=== PATIENT | male | born 1955 | race Caucasian/White ===

== ENCOUNTER → 2018-03-23 10:00 | Outpatient (CLI) | payer OTHER, SELFPAY ==
[2018-03-23 10:56] LABS: Add Manual Diff / Slide Review NO; Eosinophils Percent Auto 3.4 % (2-4); Hematocrit 44.3 % (41-53); Hemoglobin 15.5 g/dL (13.5-17.5); Mean Corpuscular Hemoglobin 29.7 PG (26-34); Neutrophils Absolute Auto 4500 /uL (3000-5900); Neutrophils Percent Auto 64.6 % (50-75); Platelet Count 200 X10^3/uL (150-400); Red Blood Cell Count 5.21 X10^6/uL (4.5-5.9); Red Cell Distribution Width 13.7 % (11.6-14.8)
[2018-03-23 11:00] LABS: Alanine Aminotransferase 36 IU/L (21-72); Albumin 4.6 g/dL (3.5-5.0); Albumin Globulin Ratio 1.8 (1.0-2.8); Alkaline Phosphatase 44 U/L (38-126); Aspartate Aminotransferase 25 IU/L (17-59); BUN Creatinine Ratio 16.7 (6-22); Bilirubin Total 0.6 mg/dL (0.2-1.3); Blood Urea Nitrogen 15 mg/dL (9-20); Calcium 9.9 mg/dL (8.4-10.2); Carbon Dioxide 28 mmol/L (22-32); Chloride 102 mmol/L (98-107); Estimated Glomerular Filt Rate > 60.0 mL/min (>60); Globulin 2.6 g/dL (1.7-4.1); Glucose 110 mg/dL (80-110); HEMOLYSIS < 15 (0-50); Potassium 4.2 mmol/L (3.4-5.1); Sodium 142 mmol/L (137-145); Total Protein 7.2 g/dL (6.3-8.2)
[2018-03-23 11:08] LABS: Cholesterol 181 mg/dL (140-199); HDL Cholesterol 48 mg/dL (40-60); LDL Cholesterol Calculated 101 mg/dL (<100); Triglycerides 159 mg/dL (35-150)
== END ==
PROVIDERS: PCP Internal Medicine; Visit Provider Internal Medicine
DX: I10 Essential (primary) hypertension (principal); E78.00 Pure hypercholesterolemia, unspecified; I48.1 Persistent atrial fibrillation
CPT/HCPCS: 36415; 80053; 80061; 85025

== ENCOUNTER → 2019-02-18 11:40 | Outpatient (CLI) | payer OTHER, SELFPAY ==
--- NOTE | 2019-02-18 11:52 | DI.CT.S_ITS ---
PROCEDURE: CT LE RT WO CON INDICATIONS: OSTEOARTHRITIS OF ANKLE TECHNIQUE: Noncontrast 1-1.5 mm axial sections acquired from above the tibiotalar joint to the bottom of the calcaneus, with coronal and sagittal reformats. COMPARISON: [facility], CR, XR FOOT 3+ VIEWS RIGHT, 02/12/2019, 13:55. FINDINGS: Image quality: Diagnostic. Bones: No acute fracture, dislocation, or suspicious osseous lesion is evident involving the osseous structures as imaged right ankle/foot. There are severe degenerative changes identified involving the tibiotalar and posterior subtalar joints. Areas of bony remodeling, and marginal osteophyte formation, subchondral sclerosis, and degenerative cystic changes are present. These findings are most pronounced involving the subtalar joints. Additional [id number] degenerative changes involving the talonavicular, tarsonavicular, and tarsometatarsal joints are present. Soft tissues: There is a mild subcutaneous edema are identified about the midfoot and hindfoot. No drainable fluid collection is evident. No soft tissue masses are appreciated. Chondrocalcinosis of the talonavicular joint appears to be present. Please note that the ligamentous, tendinous, and cartilaginous structures of the ankle are not adequately evaluated on CT. Calcifications within the Achilles tendon are incidentally noted. IMPRESSION: 1. Severe degenerative changes of the hindfoot joints are most pronounced involving the subtalar joints. 2. Chondrocalcinosis of the ankle. Please correlate clinically to exclude calcium pyrophosphate deposition disease. 3. Mild areas of soft tissue edema about the ankle. 4. No acute osseous abnormalities. Dictated by: Harmeet Qiu M.D. on 02/18/2019 at 15:53 Approved by: Harmeet Qiu M.D. on 02/18/2019 at 15:57
== END ==
PROVIDERS: PCP Internal Medicine; Visit Provider Orthopaedic Surgery Foot and Ankle Surgery
DX: M19.071 Primary osteoarthritis, right ankle and foot (principal); M11.271 Other chondrocalcinosis, right ankle and foot; M25.471 Effusion, right ankle
CPT/HCPCS: 73700

== ENCOUNTER → 2019-05-02 13:58 | Outpatient (CLI) | payer OTHER, SELFPAY ==
[2019-05-02 15:19] LABS: Alanine Aminotransferase 40 IU/L (21-72); Albumin 4.8 g/dL (3.5-5.0); Albumin Globulin Ratio 1.5 (1.0-2.8); Alkaline Phosphatase 47 U/L (38-126); Aspartate Aminotransferase 28 IU/L (17-59); BUN Creatinine Ratio 14.4 (6-22); Blood Urea Nitrogen 13 mg/dL (9-20); Calcium 10.1 mg/dL (8.4-10.2); Carbon Dioxide 30 mmol/L (22-32); Chloride 100 mmol/L (98-107); Cholesterol 227 mg/dL (140-199); Estimated Glomerular Filt Rate > 60.0 mL/min (>60); Globulin 3.1 g/dL (1.7-4.1); Glucose 105 mg/dL (80-110); HDL Cholesterol 45 mg/dL (40-60); HEMOLYSIS < 15 (0-50); LDL Cholesterol Calculated 131 mg/dL (<100); Potassium 3.9 mmol/L (3.4-5.1); Sodium 142 mmol/L (137-145); Total Protein 7.9 g/dL (6.3-8.2); Triglycerides 254 mg/dL (35-150)
[2019-05-02 15:25] LABS: Hemoglobin A1C% w Est Avg Glu 5.2 % (4.0-6.0)
[2019-05-02 15:50] LABS: Prostate Specific Antigen 0.548 ng/mL (0.10-4.00)
== END ==
PROVIDERS: PCP Internal Medicine; Visit Provider Internal Medicine
DX: E78.00 Pure hypercholesterolemia, unspecified (principal); I10 Essential (primary) hypertension; R73.01 Impaired fasting glucose
CPT/HCPCS: 36415; 80053; 80061; 83036; 84153

== ENCOUNTER 2019-05-03 01:50 | Emergency (ER) | payer OTHER, SELFPAY ==
[2019-05-03 01:58] VITALS: BP 155/111; PULSE 137; RESP 19; TEMP 36.7; O2SAT 95; BMI 31.5
[2019-05-03 02:03] VITALS: BP 138/96; PULSE 140
[2019-05-03 02:32] LABS: Add Manual Diff / Slide Review NO; BUN Creatinine Ratio 18.9 (6-22); Basophils Absolute Auto 100 /uL (0-100); Basophils Percent Auto 0.9 % (0-2); Blood Urea Nitrogen 17 mg/dL (9-20); Calcium 9.9 mg/dL (8.4-10.2); Carbon Dioxide 22 mmol/L (22-32); Chloride 104 mmol/L (98-107); Creatine Kinase 97 U/L (55-170); Eosinophils Absolute Auto 400 /uL (0-450); Eosinophils Percent Auto 3.8 % (2-4); Estimated Glomerular Filt Rate > 60.0 mL/min (>60); Glucose 129 mg/dL (80-110); HEMOLYSIS 24 (0-50); Hematocrit 46.2 % (41-53); Hemoglobin 16.6 g/dL (13.5-17.5); Lymphocytes Absolute Auto 3200 /uL (1100-4500); Lymphocytes Percent Auto 33.7 % (25-40); Magnesium 1.9 mg/dL (1.6-2.3); Mean Corpuscular HGB Conc 35.9 % (30-36); Mean Corpuscular Hemoglobin 30.2 PG (26-34); Monocytes Absolute Auto 600 /uL (0-900); Monocytes Percent Auto 6.4 % (3-14); Neutrophils Absolute Auto 5300 /uL (1500-7000); Neutrophils Percent Auto 55.2 % (50-75); Platelet Count 222 X10^3/uL (150-400); Potassium 3.6 mmol/L (3.4-5.1); Sodium 141 mmol/L (137-145); White Blood Cell Count 9.6 X10^3/uL (4.5-11.0)
[2019-05-03 02:44] LABS: Troponin I < 0.012 ng/mL (0.01-0.034)
--- NOTE | 2019-05-03 02:50 | PC.NURSE ---
Pt awoke with a tight chest feeling and his watch said he had a rapid heartbeat. Pt presented with rate in 130s complaining of 1/10 chest Discomfort. He stated it might be like pressure but just doesnt feel right. Placed on monitor RT called, IV placed with labs drawn. Provider attempted valsalva manuver which did not work.
--- NOTE | 2019-05-03 02:54 | PC.NURSE ---
Entered patient room, pt monitor showed 86 bpm. RT called for repeat ekg, provider notified.
[2019-05-03 02:56] VITALS: BP 130/85; PULSE 80; RESP 16; O2SAT 97
[2019-05-03 03:03] LABS: Thyroid Stimulating Hormone 3.65 uIU/mL (0.47-4.68)
--- NOTE | 2019-05-03 03:09 | PC.NURSE ---
Provider stated the saline is part of an orderset, do not start.
--- NOTE | 2019-05-04 06:30 | ED.ARRPALP ---
HPI - Arrhythmia/Palpitations General Chief Complaint: Arrhythmia/Palpitations Stated Complaint: says Pulse 135-140 Time Seen by Provider: 05/03/19 02:00 Source: patient and family Mode of arrival: ambulatory Limitations: no limitations History of Present Illness HPI narrative: 63-year-old male with history of smoking and drinking presents with a fluttering in his chest. He has a history of atrial fibrillation, most recently in 2013. He has a low chads score and is therefore not anticoagulated. He denies chest pain or shortness of breath. He denies dizziness, weakness or lightheadedness, only complains of palpitations. He is certain his symptoms started within the past 24 hours. He denies any significant caffeine or nicotine but states that he was celebrating and drank more alcohol last night than he normally does MD complaint: rapid heart beat Onset (ago): hour(s) Duration: constant Severity: moderate Context: occurred during rest Arrhythmia history: atrial fibrillation Associated symptoms: denies other symptoms Review of Systems Constitutional Constitutional: Denies chills, Denies fatigue, Denies fever(s), Denies frequent falls, Denies lethargy and Denies weakness Eyes Eyes: Denies change in vision, Denies eye discharge, Denies irritation and Denies loss of vision ENT Ears, Nose, Mouth, and Throat: Denies change in voice, Denies dizziness, Denies neck pain, Denies sore throat and Denies throat swelling Cardiovascular Cardiovascular: Reports irregular heart rhythm, Reports lightheadedness, Denies palpitations, Denies dyspnea, Denies dyspnea on exertion and Denies orthopnea Respiratory Respiratory: Denies cough, Denies dyspnea, Denies dyspnea on exertion and Denies wheezing Gastrointestinal Gastrointestinal: Denies abdominal pain, Denies change in bowel habits, Denies diarrhea, Denies nausea and Denies vomiting Genitourinary Genitourinary: Denies hematuria, Denies flank pain, Denies urinary incontinence and Denies urinary urgency Musculoskeletal Musculoskeletal: Denies back pain, Denies muscle weakness, Denies neck pain, Denies numbness and Denies tingling Integumentary/Breasts Skin/Breast: Denies pruritus, Denies erythema, Denies rash and Denies wounds Neurologic Neurologic: Denies behavioral changes, Denies confusion, Denies dizziness, Denies frequent falls, Denies loss of vision, Denies numbness, Denies tingling and Denies weakness Psychiatric Psychiatric: Denies anxiety, Denies behavioral changes, Denies confusion, Denies depression, Denies homicidal ideation and Denies suicidal ideation Endocrine Endocrine: Denies fatigue, Denies flushing and Denies palpitations Hematologic/Lymphatic Hematologic/Lymphatic: Denies easy bruising Allergic/Immunologic Allergic/Immunologic: Denies urticaria, Denies throat swelling and Denies wheezing FOR[facility]LY [facility], [facility] Social History (Updated 05/04/19 @ 06:34 by Konstantin Reyes DO) alcohol intake: current Exam Narrative Exam Narrative: GENERAL: [63] year old patient appears stated age. Well-nourished, well-developed patient, in mild distress. HEAD: Atraumatic. Normocephalic. EYES: Pupils equal round and reactive. Extraocular motions intact. No scleral icterus. No injection or drainage. ENT: Nose without bleeding, purulent drainage. Throat without erythema, tonsillar hypertrophy or exudate. Airway patent. NECK: Trachea midline. Non tender CARDIOVASCULAR: Tachycardic and irregular rhythm without murmurs, gallops, or rubs. RESPIRATORY: Clear to auscultation. Breath sounds equal bilaterally. No wheezes, rales, or rhonchi. GASTROINTESTINAL: Abdomen soft, non-tender, nondistended. EXTREMITIES: No edema or joint tenderness. BACK: Nontender without deformity or crepitance. No flank tenderness. NEURO: AOx3. SKIN: No rash or erythema of visible areas Initial Vital Signs Initial Vital Signs: Vital Signs Temperature 98.1 F 05/03/19 01:58 Pulse Rate 137 H 05/03/19 01:58 Respiratory Rate 19 05/03/19 01:58 Blood Pressure 155/111 H 05/03/19 01:58 Pulse Oximetry 95 05/03/19 01:58 Scores CHADS-VASc Congestive heart failure: no Hypertension: yes Age 75 years or older: no Diabetes mellitus: no Stroke, TIA, or TE: no Vascular disease: no Age 65 to 74 years: no Sex category (female): Male CHADS-VASc Score: 1 Course Course Course Narrative: Modified Valsalva attempted without any change. Patient consented for procedural sedation and cardioversion however he spontaneously converts prior Orders Ordered: Discontinued Medications Sodium Chloride (Normal Saline 0.9%) 1,000 mls @ 150 mls/hr IV CONT KATEY Last Admin: 05/03/19 02:45 Dose: Not Given Documented by: ERIC MDM - Arrhythmia/Palpitations Lab Data Result diagrams: 05/03/19 02:00 05/03/19 02:00 Labs: Lab Results 05/03/19 05/03/19 05/03/19 Range/Units 02:00 02:00 02:00 WBC 9.6 (4.5-11.0) X10^3/uL RBC 5.50 (4.5-5.9) X10^6/uL Hgb 16.6 (13.5-17.5) g/dL Hct 46.2 (41-53) % MCV 84.0 (80-100) fL MCH 30.2 (26-34) PG MCHC 35.9 (30-36) % RDW 14.0 (11.6-14.8) % Plt Count 222 (150-400) X10^3/uL Neut % (Auto) 55.2 (50-75) % Lymph % (Auto) 33.7 (25-40) % Grand % (Auto) 6.4 (3-14) % Eos % (Auto) 3.8 (2-4) % Baso % (Auto) 0.9 (0-2) % Neut # (Auto) 5300 (3036-0889) /uL Lymph # (Auto) 3200 (1895-7424) /uL Grand # (Auto) 600 (0-900) /uL Eos # (Auto) 400 (0-450) /uL Baso # (Auto) 100 (0-100) /uL Sodium 141 (137-145) mmol/L Potassium 3.6 (3.4-5.1) mmol/L Chloride 104 (98-107) mmol/L Carbon Dioxide 22 (22-32) mmol/L BUN 17 (9-20) mg/dL Creatinine 0.90 (0.66-1.25) mg/dL Estimated GFR > 60.0 (>60) mL/min BUN/Creatinine Ratio 18.9 (6-22) Glucose 129 H (80-110) mg/dL Calcium 9.9 (8.4-10.2) mg/dL Magnesium 1.9 (1.6-2.3) mg/dL Total Creatine Kinase 97 (55-170) U/L CK-MB (CK-2) TNP CK-MB (CK-2) Rel Index TNP Troponin I < 0.012 (0.01-0.034) ng/mL TSH 3.65 (0.47-4.68) uIU/mL MDM Narrative Medical decision making narrative: 63-year-old male with chads Vasc score of 1 presents with rapid AFib that spontaneously resolved. He is already on beta blockers and flecainide. He does not require anticoagulation. Return precautions given, questions answered to his apparent satisfaction Discharge Plan Departure Patient Disposition: Home Clinical Impression: Atrial fibrillation Qualifiers: Atrial fibrillation type: paroxysmal Qualified Code(s): I48.0 - Paroxysmal atrial fibrillation Discharge Date/Time: 05/03/19 03:09 Instructions: DI for Atrial Fibrillation Activity Restrictions/Additional Instructions: *You have been diagnosed with [paroxysmal atrial fibrillation] *What to do: *Take medications as directed *Follow up with your primary care provider in 2-3 days, call for an appointment. Let them know you were seen in the Emergency Department and that we ask that you be seen in follow up *Return to ER if you should have any new, worsening or concerning symptoms Referrals: Lacho Foy MD [Primary Care Provider] -
== END 2019-05-03 03:09 | disposition home or self-care (01) ==
PROVIDERS: Emergency Provider Emergency Medicine; PCP Internal Medicine
DX: I48.0 Paroxysmal atrial fibrillation (principal)
CPT/HCPCS: 36591; 80048; 82550; 83735; 84443; 84484; 85025; 93005; 99283; 99284

== ENCOUNTER 2019-05-07 07:27 | Day surgery (SDC) | payer OTHER, SELFPAY ==
[2019-05-07] VITALS (8 sets, daily range): BP systolic 87–134; BP diastolic 49–89; PULSE 50–66; RESP 10–18; TEMP 36.8–37.1; O2SAT 93–100; BMI 30.8
[2019-05-07] MEDS: SODIUM CHLORIDE 0.9% 1,000 ML 100 ML IV ×2 (08:07→09:20)
--- NOTE | 2019-05-07 08:38 | PM.HP.1 ---
History of Present Illness History of Present Illness Date Patient Seen: 05/07/19 Time Patient Seen: 08:38 Chief complaint: [id number] Narrative: History of colon polyps Patient History Medical History (Updated 05/07/19 @ 07:51 by Krissy Gibson RN) Hypercholesteremia (Acute) Hypertension (Acute) Social History (Updated 05/04/19 @ 06:34 by Konstantin Reyes DO) household members: spouse alcohol intake: current Family & Social History Social History: household members spouse Tobacco & Substance use: alcohol intake current Meds Home Medications and Allergies Home Medications Medication Instructions Recorded Confirmed Type amlodipine 5 mg PO DAILY 05/07/19 05/07/19 History aspirin 81 mg PO DAILY 05/07/19 05/07/19 History carvedilol [Coreg] 12.5 mg PO BID 05/07/19 05/07/19 History flecainide 100 mg PO BID 05/07/19 05/07/19 History losartan 50 mg PO BID 05/07/19 05/07/19 History omega 4-fgl-sob-fish oil [EPA-DHA 2 cap PO BID 05/07/19 05/07/19 History 720] rabeprazole 20 mg PO DAILY 05/07/19 05/07/19 History rosuvastatin 10 mg PO DAILY 05/07/19 05/07/19 History Exam Vital Signs (past 8 hours): - 05/07/19 07:52 Temperature 98.4 F Pulse Rate 66 Respiratory Rate 16 Blood Pressure 134/89 Pulse Oximetry 100 Narrative Exam Narrative: Oropharynx free of lesions Chest clear to auscultation percussion Cardiac exam reveals no S3 or murmur Assessment & Plan Assessment & Plan narrative: History of adenomatous colon polyps need for follow-up colonoscopy. Risks, benefits, alternatives have been explained.
--- NOTE | 2019-05-07 09:02 | PM.OP.ENDO ---
Operative Date/Time/Diagnoses Date of procedure: 05/07/19 Time of procedure: 09:02 Pre-op diagnosis: See indication and findings Procedure & Clinicians Study performed: Colonoscopy Same procedure as scheduled: Yes Indications: History of colon polyps Surgeon: David Singh Procedure Notes Procedure in detail: After informed consent was obtained the patient was placed in left lateral decubitus position. The video colonoscope was introduced the rectum slowly advanced to cecum. On slow withdrawal mucosa was carefully examined. Preparation was good. The scope was removed. The patient tolerated procedure well. Blood loss none Complications none Sedation Total sedation time 24 minutes Versed 6 mg fentanyl 100 mg IV titration Findings 1. Scattered diverticulosis in the left and sigmoid colon 2. Otherwise negative colonoscopy to cecum Patient will need follow-up colonoscopy in 5 years
[2019-05-07] MEDS: MIDAZOLAM 5 MG/5 ML VIAL IV (09:04)
[2019-05-07] MEDS: fentaNYL 250 MCG/5 ML INJ IV (09:04)
== END 2019-05-07 10:02 | disposition home or self-care (01) ==
PROVIDERS: PCP Internal Medicine; Visit Provider Internal Medicine Gastroenterology
PROC: 0DJD8ZZ Inspection of Lower Intestinal Tract, Via Natural or Artificial Opening Endoscopic (ICD-10-PCS; CPT 45378; principal; 2019-05-07 08:30)
DX: Z86.010 Personal history of colon polyps (principal); K57.30 Diverticulosis of large intestine without perforation or abscess without bleeding; I10 Essential (primary) hypertension; E78.5 Hyperlipidemia, unspecified
CPT/HCPCS: 45378; J2250; J3010

== ENCOUNTER → 2019-05-08 10:29 | Outpatient (CLI) | payer OTHER, SELFPAY ==
--- NOTE | 2019-05-08 | DI.US.S_ITS ---
PROCEDURE: US ABDOMEN COMPLETE INDICATIONS: RUQ PAIN TECHNIQUE: Real-time scanning was performed of the abdominal and retroperitoneal organs, with image documentation. COMPARISON: None. FINDINGS: Liver: Liver is diffusely increased in echogenicity. No focal hepatic abnormalities identified. Normal hepatic size. Gallbladder: No gallstones identified. Normal gallbladder wall. No pericholecystic fluid. Negative sonographic Baez sign. Biliary ducts: Intrahepatic bile ducts are non-dilated. Extrahepatic bile duct caliber measures 5.1 mm. Normal is 6-7 mm or less in diameter, or 10 mm or less post-cholecystectomy. Pancreas: Visualized portions of the pancreas are sonographically normal. Spleen: Spleen is mildly enlarged in size and homogeneous in echotexture. Kidneys: Kidneys are normal in size and echotexture. Right kidney measures 12.1 cm long; left kidney measures 11.9 cm long. No hydronephrosis or nephrolithiasis. No solid masses. Aorta: Visualized aorta is normal in caliber at less than 3 cm. Iliacs: Proximal common iliac arteries are normal in caliber at less than 2.5 cm. IVC: Intrahepatic inferior vena cava is patent. Miscellaneous: No free abdominal fluid. IMPRESSION: 1. Increased hepatic echogenicity noted possibly related to hepatic steatosis but other sources of hepatocellular disease cannot be excluded. Recommend clinical correlation. 2. Mild sonographic splenomegaly measuring 13.0 cm. 3. No source for right upper quadrant pain identified. Dictated by: José Miguel SANTANA Interpreted: Alcon Elder MD on 05/08/2019 at 16:38 Approved by: Alcon Elder M.D. on 05/08/2019 at 19:13
== END ==
PROVIDERS: PCP Internal Medicine; Visit Provider Internal Medicine
DX: R10.11 Right upper quadrant pain (principal)
CPT/HCPCS: 76700

== ENCOUNTER → 2019-10-17 10:43 | Outpatient (CLI) | payer OTHER, SELFPAY ==
[2019-10-17 12:06] LABS: Cholesterol 221 mg/dL (140-199); HDL Cholesterol 49 mg/dL (40-60); LDL Cholesterol Calculated 144 mg/dL (<100); Triglycerides 141 mg/dL (35-150)
== END ==
PROVIDERS: PCP Internal Medicine; Referring Provider Internal Medicine; Visit Provider Internal Medicine
DX: Z23 Encounter for immunization (principal); E78.00 Pure hypercholesterolemia, unspecified
CPT/HCPCS: 36415; 80061

== ENCOUNTER → 2020-02-24 11:50 | Outpatient (CLI) | payer OTHER, SELFPAY ==
[2020-02-24 13:27] LABS: Cholesterol 197 mg/dL (140-199); HDL Cholesterol 42 mg/dL (40-60); LDL Cholesterol Calculated 122 mg/dL (<100); Triglycerides 166 mg/dL (35-150)
== END ==
PROVIDERS: PCP Internal Medicine; Referring Provider Internal Medicine; Visit Provider Internal Medicine
DX: E78.00 Pure hypercholesterolemia, unspecified (principal)
CPT/HCPCS: 36415; 80061

== ENCOUNTER → 2020-07-30 15:10 | Outpatient (ROUT) | payer MEDICARE, OTHER, SELFPAY ==
[2020-07-30 15:40] LABS: Add Manual Diff / Slide Review NO; Basophils Absolute Auto 100 /uL (0-100); Basophils Percent Auto 0.8 % (0-2); Eosinophils Absolute Auto 400 /uL (0-450); Eosinophils Percent Auto 4.2 % (2-4); Hematocrit 44.5 % (41-53); Hemoglobin 15.1 g/dL (13.5-17.5); Lymphocytes Absolute Auto 2100 /uL (1100-4500); Lymphocytes Percent Auto 24.8 % (25-40); Mean Corpuscular HGB Conc 33.9 % (30-36); Mean Corpuscular Volume 85.5 fL (80-100); Monocytes Absolute Auto 600 /uL (0-900); Monocytes Percent Auto 7.2 % (3-14); Neutrophils Absolute Auto 5400 /uL (1500-7000); Platelet Count 206 X10^3/uL (150-400); Red Cell Distribution Width 13.9 % (11.6-14.8); White Blood Cell Count 8.6 X10^3/uL (4.5-11.0)
[2020-07-30 15:58] LABS: Alanine Aminotransferase 31 IU/L (<50); Albumin 4.5 g/dL (3.5-5.0); Albumin Globulin Ratio 1.6 (1.0-2.8); Alkaline Phosphatase 45 U/L (38-126); Aspartate Aminotransferase 26 IU/L (17-59); BUN Creatinine Ratio 26.3 (6-22); Bilirubin Total 0.7 mg/dL (0.2-1.3); Blood Urea Nitrogen 21 mg/dL (9-20); Calcium 9.8 mg/dL (8.4-10.2); Carbon Dioxide 28 mmol/L (22-32); Chloride 107 mmol/L (98-107); Estimated Glomerular Filt Rate > 60.0 mL/min (>60); Globulin 2.8 g/dL (1.7-4.1); Glucose 112 mg/dL (80-110); HEMOLYSIS < 15 (0-50); Potassium 4.3 mmol/L (3.4-5.1); Sodium 140 mmol/L (137-145); Total Protein 7.3 g/dL (6.3-8.2)
[2020-07-30 16:12] LABS: Hemoglobin A1C% w Est Avg Glu 5.6 % (4.0-6.0)
[2020-07-30 16:15] LABS: Prostate Specific Antigen 0.491 ng/mL (0.10-4.00)
[2020-08-02 17:31] LABS: Hep C Virus Ab w/Reflex Quant NEGATIVE s/c (NEGATIVE)
== END ==
PROVIDERS: PCP Internal Medicine; Visit Provider Internal Medicine
DX: Z00.00 Encounter for general adult medical examination without abnormal findings (principal); I10 Essential (primary) hypertension; Z12.5 Encounter for screening for malignant neoplasm of prostate; R73.01 Impaired fasting glucose
CPT/HCPCS: 80053; 83036; 84153; 85025; 86803; G0103

== ENCOUNTER → 2020-08-30 06:59 | Outpatient (CLI) | payer MEDICARE, OTHER, SELFPAY ==
--- NOTE | 2020-08-30 | DI.US.S_ITS ---
PROCEDURE: US ABD AORTA ANEURYSM SCREEN INDICATIONS: SCREEN TECHNIQUE: Real time scanning was performed of the aorta and iliac arteries, with image documentation. COMPARISON: None. FINDINGS: Aorta: Proximal aortic diameter is not seen due to bowel gas. Mid-aorta measures 2.1 cm. Distal aortic diameter is 1.8 cm. Iliac arteries: Right common iliac artery measures 1.0 cm. Left common iliac artery measures 1.0 cm. IMPRESSION: No aneurysm found. Dictated by: Luis Al M.D. on 08/30/2020 at 11:04 Approved by: Luis Al M.D. on 08/30/2020 at 11:07
--- NOTE | 2020-08-30 | DI.ECHO.S_ITS ---
[facility] +---------+ : : [address] : : : : [place], [place] : : : : [id number] : : : : Phone: [phone] Echocardiogram Report + + :Name: MANDO PEREYRA Study Date: 08/30/2020 Height: 70 in : :[facility] Weight: 226 lb : : Gender: Male BSA: 2.2 m2 : :: 1955 Age: 65 yrs BP: 157/102 mmHg: :Reason For Study: AFIB : :Ordering Physician: SIVA, : :WILFRID Performed By: Rand Katz : :Referring: WILFRID PANIAGUA : + + Interpretation Summary 1) Normal left ventricular thickness, size, wall motion, and systolic function (EF 55-60%). 2) Normal right ventricular size and function. 3) No significant valvular abnormalities. 4) Hypertension present during the study (BP 157/102mm Hg). 5) No prior Echo available for comparison. Procedure: A two-dimensional transthoracic echocardiogram with color flow and Doppler was performed. The study quality was technically adequate. There is no prior echocardiogram noted for this patient. The subcostal views were difficult to obtain and are suboptimal in quality. The patient was in sinus bradycardia with heart rates between 51-59 bpm during the exam. Left Ventricle: The left ventricle is normal in size and wall thickness. The ejection fraction is estimated to be 55-60%. Diastolic parameters suggest probable normal left ventricular diastolic function and normal filling pressures. Right Ventricle: The right ventricle is normal in size and function. Atria: The left atrium is moderately dilated. Right atrial size is normal. There is no Doppler evidence for an interatrial shunt. Mitral Valve: The mitral valve is normal in structure and function. There is mild mitral regurgitation. Aortic Valve: The aortic valve is trileaflet. The aortic valve opens well. There is no aortic valve stenosis. No aortic regurgitation is present. Tricuspid Valve: There is trace tricuspid regurgitation. Pulmonary artery pressures cannot be estimated because of the lack of a measurable TR jet velocity. Pulmonic Valve: The pulmonic valve leaflets are thin and pliable; valve motion is normal. There is no pulmonic valvular regurgitation. Great Vessels: The aortic root is normal size. The dimensions of the ascending aorta are normal. The inferior vena cava was not well visualized. Pericardium/ Pleura There is no pericardial effusion. There is no pleural effusion. MMode/2D Measurements & Calculations LVIDd: 5.1 cm LVOT diam: 2.2 cm LVIDs: 3.3 cm Ao root diam: 3.6 cm FS: 35.0 % asc Aorta Diam: 3.3 cm EPSS: 1.0 cm Ao Arch Diam (Prox Trans): 2.7 cm IVSd: 0.92 cm LVPWd: 0.98 cm LV cohen. diameter/BSA (cm/m^2): 2.3 LV sys. diameter/BSA (cm/m^2): 1.5 LA A2 area: 25.0 cm2 RA long axis: 5.6 cm LA A4 area: 18.9 cm2 RA area: 15.7 cm2 LA length (vol): 5.2 cm RA vol: 37.9 ml LA vol: 76.6 ml RA : 17.2 ml/m2 LA vol index: 34.8 ml/m2 RVD1 (basal): 3.6 cm TAPSE: 2.1 cm Doppler Measurements & Calculations Ao V2 max: 121.5 cm/sec LVOT Max Kranthi: 78.3 cm/sec Ao V2 mean: 80.6 cm/sec LV V1 max P.5 mmHg Ao max P.9 mmHg LV V1 VTI: 18.8 cm Ao mean P.0 mmHg CHERYL(I,D): 2.6 cm2 Ao V2 VTI: 26.4 cm CHERYL(V,D): 2.3 cm2 sev ratio: 0.71 CHERYL indexed to BSA (cm^2/m^2): 1.2 MV E max kranthi: 87.9 cm/sec PA V2 max: 58.5 cm/sec MV A max kranthi: 68.5 cm/sec PA V2 mean: 36.7 cm/sec MV E/A: 1.3 PA mean P.64 mmHg Med Peak E' Kranthi: 8.3 cm/sec PA pr(Accel): 36.2 mmHg E/E' med: 10.5 Lat Peak E' Kranthi: 12.1 cm/sec E/E' lat: 7.3 E/e' average: 8.9 MV dec time: 0.23 sec SV(LVBIRD): 68.4 ml Reading Physician:09:59 AM
== END ==
PROVIDERS: PCP Internal Medicine; Referring Provider Internal Medicine; Visit Provider Internal Medicine
DX: I34.0 Nonrheumatic mitral (valve) insufficiency (principal); I48.19 Other persistent atrial fibrillation; Z13.6 Encounter for screening for cardiovascular disorders
CPT/HCPCS: 76706; 93306

== ENCOUNTER → 2021-02-04 12:51 | Outpatient (CLI) | payer MEDICARE, OTHER, SELFPAY ==
--- NOTE | 2021-03-11 08:01 | PM.CARDMON.1 ---
Tech Writer Report Referral & Results Date Patient Seen: 02/04/21 Requesting provider: Lacho Foy Indication: Atrial fibrillation Duration of monitoring (days): 14 Diary information: There were 7 patient triggered events and 4 patient diary entries All 11 of these events were associated with (within 45 seconds) sinus rhythm, PVCs, and atrial fibrillation Data: Minimum heart rate identified was 30 beats per minute at 04:49 on 02/17/2021 Maximum sinus heart rate was 98 beats per minute at 09:23 on 02/17/2021 Maximum overall heart rate was 149 beats per minute at 00:27 on 02/07/2021 during a run of atrial fibrillation Patient did have atrial fibrillation present that approximates somewhat less than 1% of identified beats. Longest duration of atrial fibrillation was 1 hour 49 minutes. Heart rate during atrial fibrillation episodes ranged from although of 61 beats per minute to a high of 149 beats per minute Less than 1% of identified beats were ventricular or supraventricular ectopic in origin, which would classify them as rare. Impression: Patient with rare episodes of atrial fibrillation, atrial fibrillation burden less than 1%. Longest duration almost 2 hours however. Patient does seem to be aware of episodes of atrial fibrillation based on patient events. Patient overall was somewhat bradycardic with minimum heart rate in the high 30s (sinus rhythm), and during atrial fibrillation maximum heart rate a bit excessive at 149 with maximum heart rate Clinical correlation suggested Note: Final report was not received from [employer] until March 10. Any delays in reporting results were due to delays from the technology company.
== END ==
PROVIDERS: PCP Internal Medicine; Referring Provider Internal Medicine; Visit Provider Internal Medicine
DX: I48.91 Unspecified atrial fibrillation (principal)
CPT/HCPCS: 93246; 93248

== ENCOUNTER 2021-02-21 13:47 | Emergency (ER) | payer MEDICARE, OTHER, SELFPAY ==
--- NOTE | 2021-02-21 13:55 | DI.RAD.S_ITS ---
PROCEDURE: XR CHEST 1V INDICATIONS: chest pain TECHNIQUE: One view of the chest was acquired. COMPARISON: None. FINDINGS: Surgical changes and devices: None. Lungs and pleura: Lungs are clear. No pleural effusions or pneumothorax. Mediastinum: Mediastinal contours appear normal. Heart size is normal. Bones and chest wall: No suspicious bony lesions. Overlying soft tissues appear unremarkable. IMPRESSION: No acute disease. Dictated by: Prasanna Faith M.D. on 02/21/2021 at 14:27 Approved by: Prasanna Faith M.D. on 02/21/2021 at 14:28
[2021-02-21 14:11] LABS: Add Manual Diff / Slide Review NO; Basophils Absolute Auto 100 /uL (0-100); Basophils Percent Auto 0.9 % (0-2); Eosinophils Absolute Auto 300 /uL (0-450); Eosinophils Percent Auto 3.6 % (2-4); Hematocrit 45.8 % (41-53); Hemoglobin 15.4 g/dL (13.5-17.5); Lymphocytes Absolute Auto 2200 /uL (1100-4500); Mean Corpuscular HGB Conc 33.7 % (30-36); Mean Corpuscular Hemoglobin 28.7 PG (26-34); Mean Corpuscular Volume 85.2 fL (80-100); Monocytes Absolute Auto 700 /uL (0-900); Monocytes Percent Auto 7.6 % (3-14); Neutrophils Absolute Auto 5500 /uL (1500-7000); Neutrophils Percent Auto 62.9 % (50-75); Platelet Count 218 X10^3/uL (150-400); Red Blood Cell Count 5.38 X10^6/uL (4.5-5.9); White Blood Cell Count 8.7 X10^3/uL (4.5-11.0)
[2021-02-21 14:20] LABS: Alanine Aminotransferase 35 IU/L (<50); Albumin 4.8 g/dL (3.5-5.0); Albumin Globulin Ratio 1.4 (1.0-2.8); Alkaline Phosphatase 54 U/L (38-126); Aspartate Aminotransferase 29 IU/L (17-59); BUN Creatinine Ratio 18.1 (6-22); Bilirubin Total 0.7 mg/dL (0.2-1.3); Blood Urea Nitrogen 15 mg/dL (9-20); Calcium 9.8 mg/dL (8.4-10.2); Carbon Dioxide 28 mmol/L (22-32); Chloride 105 mmol/L (98-107); Creatine Kinase 75 U/L (55-170); Estimated Glomerular Filt Rate > 60.0 mL/min (>60); Globulin 3.4 g/dL (1.7-4.1); Glucose 113 mg/dL (80-110); HEMOLYSIS 16 (0-50); Lipase 99 U/L (23-300); Potassium 4.3 mmol/L (3.4-5.1); Sodium 141 mmol/L (137-145); Total Protein 8.2 g/dL (6.3-8.2)
[2021-02-21 14:32] LABS: NT-proBNP (BNP-Adult 18+) 79 pg/mL (<125); Troponin I < 0.012 ng/mL (0.01-0.034)
--- NOTE | 2021-02-21 14:53 | ED_ITS ---
HPI - Arrhythmia/Palpitations General Chief Complaint: Arrhythmia/Palpitations Stated Complaint: AFIB Time Seen by Provider: 02/21/21 14:23 Source: patient Mode of arrival: Ambulatory History of Present Illness HPI narrative: patient is a 65-year-old male with history of atrial fibrillation and hypertension presenting with chest discomfort. He said he had about a 2 hour episode of chest discomfort last night from 3:00 a.m. to 5:00 a.m.. He knew he was in atrial fibrillation he thinks it woke him from his sleep. He took an extra carvedilol as he was previously instructed to do and eventually stopped. He however had some persistent right-sided chest discomfort which has now resolved. He actually has been having episodes of atrial fibrillation despite flecainide often on for number of weeks. He has referral in to Dr. Wilson the structural manager by his PCP. He also just got done with Holter monitor which he has already mailed in but results are pending. Related Data Home Medications Medication Instructions Recorded Confirmed amlodipine 5 mg tablet 5 mg PO DAILY 05/07/19 05/07/19 aspirin 81 mg chewable tablet 81 mg PO DAILY 05/07/19 05/07/19 carvedilol 12.5 mg tablet (Coreg) 12.5 mg PO BID 05/07/19 05/07/19 flecainide 100 mg tablet 100 mg PO BID 05/07/19 05/07/19 losartan 50 mg tablet 50 mg PO BID 05/07/19 05/07/19 omega 6-xyp-mrp-fish oil 290 2 cap PO BID 05/07/19 05/07/19 mg-430 mg-1.4 gram capsule (EPA-DHA 720) rabeprazole 20 mg tablet,delayed 20 mg PO DAILY 05/07/19 05/07/19 release rosuvastatin 10 mg tablet 10 mg PO DAILY 05/07/19 05/07/19 Review of Systems Review of Systems Narrative: GENERAL: Denies chills, fatigue, malaise, fever, sweats, travel HEENT: Denies sinus pain, ear pain, sore throat, difficulty swallowing, neck pain RESPIRATORY: Denies dyspnea, cough, wheezing, hemoptysis, sputum. CARDIOVASCULAR: See HPI GASTROINTESTINAL: Denies nausea, vomiting, abdominal pain, diarrhea, constipation, melena. : Denies dysuria, frequency, incontinence, hematuria, urinary retention, flank pain. MUSCULOSKELETAL: Denies weakness, joint pain, or bony pain SKIN: No rash, no erythema, no pruritus NEUROLOGIC: Denies weakness, dizziness, headache, numbness, change in speech, confusion PSYCHIATRIC: No concerning psychosocial issues. 12 point review of systems is negative except for those stated above and HPI Patient History Medical History (Updated 02/21/21 @ 15:23 by Renita Son DO) Hypercholesteremia Hypertension Social History (Updated 05/04/19 @ 06:34 by Konstantin Reyes DO) household members: spouse alcohol intake: current Exam Initial Vital Signs Initial Vital Signs: Vital Signs Pulse Rate 47 L 02/21/21 14:58 Respiratory Rate 14 02/21/21 14:58 Pulse Oximetry 95 02/21/21 14:58 GENERAL: [Well-appearing, well-nourished] and in [no acute] distress. HEENT: Head atraumatic,EOMI, pupils reactive, face symmetric, [moist] mucous membranes CARDIOVASCULAR: Regular rate and rhythm without murmurs, rubs or gallops. RESPIRATORY: Breath sounds equal bilaterally, no wheezes rales or rhonchi. ABDOMEN: Soft, nontender. Normoactive bowel sounds all 4 quadrants. No guarding or rebound. EXTREMITIES: Normal range of motion, no clubbing or edema. Neurovascularly intact NEUROLOGICAL: Alert and oriented x4.Normal gait and speech. SKIN: Warm, dry, no laceration, no petechiae, no rashes or lesions. Course Orders Ordered: ED Orders 02/21/21 13:55 XR chest 1V Stat EKG-12 Lead Stat 02/21/21 14:00 BNP [NT-proBNP (BNP-Adult 18+)] Stat Complete Blood Count AUTO DIFF Stat Comprehensive Metabolic Panel Stat Lipase Stat Magnesium Stat Troponin & CK Cardiac Panel Stat Vital Signs Vital signs: Vital Signs - 8 hr 02/21/21 14:58 02/21/21 15:00 02/21/21 15:30 Pulse Rate 47 L 50 L 50 L Respiratory Rate 14 22 12 Blood Pressure 128/80 Pulse Oximetry 95 95 98 MDM - Arrhythmia/Palpitations Lab Data Result diagrams: 02/21/21 14:00 02/21/21 14:00 Labs: Lab Results 02/21/21 02/21/21 Range/Units 14:00 14:00 WBC 8.7 (4.5-11.0) X10^3/uL RBC 5.38 (4.5-5.9) X10^6/uL Hgb 15.4 (13.5-17.5) g/dL Hct 45.8 (41-53) % MCV 85.2 (80-100) fL MCH 28.7 (26-34) PG MCHC 33.7 (30-36) % RDW 14.0 (11.6-14.8) % Plt Count 218 (150-400) X10^3/uL Neut % (Auto) 62.9 (50-75) % Lymph % (Auto) 25.0 (25-40) % [place] % (Auto) 7.6 (3-14) % Eos % (Auto) 3.6 (2-4) % Baso % (Auto) 0.9 (0-2) % Neut # (Auto) 5500 (0711-9079) /uL Lymph # (Auto) 2200 (7319-0113) /uL [place] # (Auto) 700 (0-900) /uL Eos # (Auto) 300 (0-450) /uL Baso # (Auto) 100 (0-100) /uL Sodium 141 (137-145) mmol/L Potassium 4.3 (3.4-5.1) mmol/L Chloride 105 (98-107) mmol/L Carbon Dioxide 28 (22-32) mmol/L BUN 15 (9-20) mg/dL Creatinine 0.83 (0.66-1.25) mg/dL Estimated GFR > 60.0 (>60) mL/min BUN/Creatinine Ratio 18.1 (6-22) Glucose 113 H (80-110) mg/dL Calcium 9.8 (8.4-10.2) mg/dL Magnesium 2.0 (1.6-2.3) mg/dL Total Bilirubin 0.7 (0.2-1.3) mg/dL AST 29 (17-59) IU/L ALT 35 (<50) IU/L Alkaline Phosphatase 54 (38-126) U/L Total Creatine Kinase 75 (55-170) U/L CK-MB (CK-2) TNP CK-MB (CK-2) Rel Index TNP Troponin I < 0.012 (0.01-0.034) ng/mL NT-Pro-B Natriuret Pep 79 (<125) pg/mL Total Protein 8.2 (6.3-8.2) g/dL Albumin 4.8 (3.5-5.0) g/dL Globulin 3.4 (1.7-4.1) g/dL Albumin/Globulin Ratio 1.4 (1.0-2.8) Lipase 99 (23-300) U/L Imaging Data Chest x-ray: Radiologist's Impresson: PROCEDURE: XR CHEST 1V INDICATIONS: chest pain TECHNIQUE: One view of the chest was acquired. COMPARISON: None. FINDINGS: Surgical changes and devices: None. Lungs and pleura: Lungs are clear. No pleural effusions or pneumothorax. Mediastinum: Mediastinal contours appear normal. Heart size is normal. Bones and chest wall: No suspicious bony lesions. Overlying soft tissues appear unremarkable. IMPRESSION: No acute disease. Dictated by: Prasanna Faith M.D. on 02/21/2021 at 14:27 ECG Data Interpretation: Normal sinus rhythm rate 54 p.r. interval 176 you is [address] changes no T-wave inversions mild artifact noted similar to previous EKG MDM Narrative Medical decision making narrative: Patient is in normal sinus rhythm on flecainide. Concern for multiple intermittent episodes of atrial fibrillation. He has already had a Holter monitor and he has referral to Dr. montalvo. This time he is normal sinus rhythm blood work is overall reassuring. No further workup or referral needed from the emergency department. He is no longer having chest discomfort. Chest discomfort was likely from his atrial fibrillation. Discharge Plan Departure Patient Disposition: Home Clinical Impression: Atrial fibrillation Instructions: DI for Atrial Fibrillation Activity Restrictions/Additional Instructions: *You have been diagnosed with atrial fibrillation *What to do: fortunately today you are not in atrial fibrillation. However I fully support your referral to Dr. Wilson. You may or may not qualify for an ablation. However if you are having new or worsening chest discomfort I do recommend he return to the emergency department. *Continue to take medications as directed *Follow up with your primary care provider in 2-3 days *Return to ER if you should have Increasing chest pain, palpitations, dizziness, shortness of breath [or] any new, worsening or concerning symptoms Prescriptions: No Action losartan 50 mg tablet 50 mg PO BID RF: 0 rabeprazole 20 mg Tablet,Delayed Release (Dr/Ec) 20 mg PO DAILY RF: 0 carvedilol [Coreg] 12.5 mg Tablet 12.5 mg PO BID RF: 0 amlodipine 5 mg Tablet 5 mg PO DAILY RF: 0 flecainide 100 mg Tablet 100 mg PO BID RF: 0 aspirin 81 mg Tablet,Chewable 81 mg PO DAILY RF: 0 rosuvastatin 10 mg Tablet 10 mg PO DAILY RF: 0 EPA-DHA 720 290-430-1.4 mg-mg-gram Capsule 2 cap PO BID RF: 0 Referrals: Lacho Foy MD [Primary Care Provider] -
[2021-02-21 14:58] VITALS: PULSE 47; RESP 14; O2SAT 95
[2021-02-21 15:00] VITALS: PULSE 50; RESP 22; O2SAT 95
--- NOTE | 2021-02-21 15:04 | PC.NURSE ---
Recently had heart monitor for two weeks does not have results yet. Patient reports approx 8 episodes similar to todays over last month. patient took extra dose of Carvedilol early this morning. Continues to be pain and pressure free at this time
[2021-02-21 15:30] VITALS: BP 128/80; PULSE 50; RESP 12; O2SAT 98
== END 2021-02-21 15:30 | disposition home or self-care (01) ==
PROVIDERS: Emergency Provider Emergency Medicine; PCP Internal Medicine
DX: I48.91 Unspecified atrial fibrillation (principal)
CPT/HCPCS: 36415; 71045; 80053; 82550; 83690; 83735; 83880; 84484; 85025; 93005; 99284

== ENCOUNTER 2021-06-05 08:26 | Emergency (ER) | payer MEDICARE, OTHER, SELFPAY ==
[2021-06-05 08:34] VITALS: PULSE 61; O2SAT 97
[2021-06-05 08:35] VITALS: BP 131/87; PULSE 66; O2SAT 97
[2021-06-05 08:45] VITALS: BP 131/87; PULSE 67; RESP 18; TEMP 36.6; O2SAT 97; BMI 32.4
[2021-06-05 09:00] VITALS: BP 127/83; PULSE 67; O2SAT 97
--- NOTE | 2021-06-05 09:03 | ED.BACK ---
HPI - Back Pain/Injury General Chief Complaint: Back Pain/Injury Stated Complaint: Back pain, getting worse for a week Time Seen by Provider: 06/05/21 08:44 Source: patient Limitations: no limitations History of Present Illness HPI Narrative: Patient is a 65-year-old male. Does have a history of atrial fibrillation. Is on anticoagulation for this who is here for evaluation of lower back discomfort. He states that the symptoms started at the end of last week. 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 Had pain afterwards. No radiation down to his legs. Is having some constipation issues but he has also been on tramadol for the past couple days because the back pain. This is prescribed by his primary provider. He saw his primary doctor at the end of last week for this lower back discomfort. He has tried heat in ice and also a TENS unit without any improvement. No urinary symptoms. No saddle anesthesia. Has had back surgery in the past but this was several years ago. Related Data Home Medications Medication Instructions Recorded Confirmed amlodipine 5 mg tablet 5 mg PO DAILY 05/07/19 05/07/19 aspirin 81 mg chewable tablet 81 mg PO DAILY 05/07/19 05/07/19 carvedilol 12.5 mg tablet (Coreg) 12.5 mg PO BID 05/07/19 05/07/19 flecainide 100 mg tablet 100 mg PO BID 05/07/19 05/07/19 losartan 50 mg tablet 50 mg PO BID 05/07/19 05/07/19 omega 6-rxe-mkc-fish oil 290 2 cap PO BID 05/07/19 05/07/19 mg-430 mg-1.4 gram capsule (EPA-DHA 720) rabeprazole 20 mg tablet,delayed 20 mg PO DAILY 05/07/19 05/07/19 release rosuvastatin 10 mg tablet 10 mg PO DAILY 05/07/19 05/07/19 Previous Rx's Medication Instructions Recorded cyclobenzaprine 10 mg tablet 10 mg PO TID PRN #21 tab 06/05/21 oxycodone-acetaminophen 5 mg-325 1 tab PO Q4-6H PRN #14 tab 06/05/21 mg tablet prednisone 20 mg tablet 20 mg PO DAILY 5 Days #5 tab 06/05/21 Allergies Allergy/AdvReac Type Severity Reaction Status Date / Time No Known Drug Allergies Allergy Verified 06/05/21 08:45 Review of Systems Constitutional Constitutional: Reports system reviewed and no additional complaints, except as documented Gastrointestinal Gastrointestinal: Reports system reviewed and no additional complaints, except as documented Musculoskeletal Musculoskeletal: Reports system reviewed and no additional complaints, except as documented and Reports as per HPI Integumentary/Breasts Skin/Breast: Reports system reviewed and no additional complaints, except as documented Neurologic Neurologic: Reports system reviewed and no additional complaints, except as documented Hematologic/Lymphatic On Anticoagulants: Yes Patient History Medical History Hypercholesteremia Hypertension Social History household members: spouse Smoking Status: Former smoker alcohol intake: current Smoking Status: Former smoker alcohol intake frequency: 3 or more drinks per day Alcohol type: wine Substance Use Type: does not use Exam Initial Vital Signs Initial Vital Signs: Vital Signs Temperature 97.8 F 06/05/21 08:45 Pulse Rate 67 06/05/21 08:45 Respiratory Rate 18 06/05/21 08:45 Blood Pressure 131/87 06/05/21 08:45 Pulse Oximetry 97 06/05/21 08:45 Const General: cooperative and comfortable HENMT Head: normal to inspection and normocephalic Resp Effort & Inspection: normal respiratory effort Cardio Rate: regular rate GI Inspection: normal to inspection Palpation: soft Back/Spine/Pelvis Thoracic/Lumbar Spine: No thoracic spinal tenderness and No lumbar spinal tenderness Sacroiliac Joints: nontender Skin General: no rashes or lesions noted Neuro General: patient alert, patient awake and patient oriented x3 Gait: normal gait Extrem General: normal to inspection and capillary refill normal Psych Appearance: grossly normal Course Vital Signs Vital signs: Vital Signs - 8 hr 06/05/21 08:45 Temperature 97.8 F Pulse Rate 67 Respiratory Rate 18 Blood Pressure 131/87 Pulse Oximetry 97 MDM - Back Pain/Injury MDM Narrative Medical decision making narrative: Patient has had symptoms for the past several days. Has been on tramadol without any improvement. Has not taken any anti-inflammatories because he is on Eliquis. I have low suspicion for fracture. Low suspicion for cauda equina. No indication for radiologic studies here in the ER. Plan will be is to start him on a very short course of some steroids. I will changes pain medication around to try to help with his symptoms. Will also start on a muscle relaxer to see if this helps his symptoms. Will have him contact his primary doctor. He already has a referral in to see physical therapy. He is given return precautions and follow-up instructions. He expressed understanding and agreement. Discharge Plan Departure Patient Disposition: Home Clinical Impression: Strain of lumbar region Instructions: DI for Back Strain or Sprain Activity Restrictions/Additional Instructions: I recommend you continue all of your medications as directed. We will start you on a very short course of some steroids. We will also change your pain medication to see if this new one will help your symptoms. Any stronger pain medication than this will need to come from your primary doctor. Will also start you on muscle relaxers. Thankfully most back pain does get better on its own however it may take several days/weeks for this to improve. I do recommend that you continue to follow through with getting in to see physical therapy. Prescriptions: New prednisone 20 mg tablet 20 mg PO DAILY 5 Days Qty: 5 RF: 0 cyclobenzaprine 10 mg tablet 10 mg PO TID PRN (Reason: muscle spasm) Qty: 21 RF: 0 oxycodone-acetaminophen 5-325 mg tablet 1 tab PO Q4-6H PRN (Reason: pain) Qty: 14 RF: 0 No Action losartan 50 mg tablet 50 mg PO BID RF: 0 rabeprazole 20 mg Tablet,Delayed Release (Dr/Ec) 20 mg PO DAILY RF: 0 carvedilol [Coreg] 12.5 mg Tablet 12.5 mg PO BID RF: 0 amlodipine 5 mg Tablet 5 mg PO DAILY RF: 0 flecainide 100 mg Tablet 100 mg PO BID RF: 0 aspirin 81 mg Tablet,Chewable 81 mg PO DAILY RF: 0 rosuvastatin 10 mg Tablet 10 mg PO DAILY RF: 0 EPA-DHA 720 290-430-1.4 mg-mg-gram Capsule 2 cap PO BID RF: 0 Referrals: Lacho Foy MD [Primary Care Provider] -
[2021-06-05 09:34] VITALS: BP 127/83; PULSE 61; RESP 18; O2SAT 96
== END 2021-06-05 09:35 | disposition home or self-care (01) ==
PROVIDERS: Emergency Provider Emergency Medicine; PCP Internal Medicine
DX: S39.012A Strain of muscle, fascia and tendon of lower back, initial encounter (principal); Z79.01 Long term (current) use of anticoagulants
CPT/HCPCS: 99281

== ENCOUNTER 2021-10-24 12:07 | Emergency (ER) | payer MEDICARE, OTHER, SELFPAY ==
[2021-10-24 12:28] VITALS: BP 182/94; PULSE 62; RESP 18; TEMP 36.2; O2SAT 98; BMI 33.5
--- NOTE | 2021-10-24 12:34 | DI.US.S_ITS ---
PROCEDURE: US PERIPH VENOUS LOW EXTREM LT INDICATIONS: LOWER EXTREMITY SWELLING, JUST OFF ELIQUIST TECHNIQUE: Real-time imaging, as well as color and pulse Doppler interrogation, were performed of the lower extremity deep veins from the inguinal ligament to the popliteal fossa. COMPARISON: None. FINDINGS: The common femoral, femoral and popliteal veins are normally compressible, and free of intraluminal thrombus. Color and pulse Doppler demonstrate normal phasic intraluminal flow. There is normal augmentation response to distal compression maneuver. 1.8 x 0.5 x 1.3 cm fluid collection in soft tissue along medial aspect of left ankle and show no internal vascularity. IMPRESSION: 1. No evidence of DVT in visualized left lower extremity veins. 2. Finding may represent a small hematoma in medial ankle soft tissue. Dictated by: Aris Nash M.D. on 10/24/2021 at 13:58 Approved by: Aris Nash M.D. on 10/24/2021 at 13:59
--- NOTE | 2021-10-24 15:50 | DI.RAD.S_ITS ---
PROCEDURE: XR ANKLE LT MIN 3V INDICATIONS: Medial ankle swelling/pain TECHNIQUE: 3 views of the ankle were acquired. COMPARISON: None. FINDINGS: Bones: No fractures or dislocations. Ankle mortise is normally aligned. No suspicious bony lesions. Soft tissues: No tibiotalar joint effusion. Achilles tendon appears normal. Swelling at the medial malleolus. IMPRESSION: No acute osseous abnormality. Swelling at the medial malleolus. Consider follow-up radiographs in 10-14 days. Dictated by: Brent Aguilera M.D. on 10/24/2021 at 16:42 Approved by: Brent Aguilera M.D. on 10/24/2021 at 16:43
--- NOTE | 2021-10-24 16:06 | ED_ITS ---
HPI - Extremity Problem <Celia Liu PA-C - Last Filed: 10/24/21 17:36> General Chief complaint: Extremity Problem,Nontraumatic Stated complaint: Poss blood clot in left ankle. sent by [facility] Time Seen by Provider: 10/24/21 15:03 Source: patient Mode of arrival: Ambulatory History of Present Illness HPI Narrative: 66-year-old male with no reported past medical history presents to the ED with 5 days of medial left ankle swelling. Patient denies trauma. Patient endorses pain at the site of the swelling. Denies redness. Denies fever, chills, chest pain, shortness of breath, nausea, vomiting, numbness, tingling, weakness. Related Data Home Medications Medication Instructions Recorded Confirmed aspirin 81 mg chewable tablet 81 mg PO DAILY 05/07/19 10/24/21 flecainide 100 mg tablet 100 mg PO BID 05/07/19 10/24/21 losartan 50 mg tablet 50 mg PO BID 05/07/19 10/24/21 omega 1-nxm-yec-fish oil 290 2 cap PO BID 05/07/19 10/24/21 mg-430 mg-1.4 gram capsule (EPA-DHA 720) rabeprazole 20 mg tablet,delayed 20 mg PO DAILY 05/07/19 10/24/21 release rosuvastatin 10 mg tablet 10 mg PO DAILY 05/07/19 10/24/21 carvedilol 12.5 mg tablet (Coreg) 25 mg PO BID tab 10/24/21 10/24/21 Previous Rx's Medication Instructions Recorded cyclobenzaprine 10 mg tablet 10 mg PO TID PRN #21 tab 06/05/21 oxycodone-acetaminophen 5 mg-325 1 tab PO Q4-6H PRN #14 tab 06/05/21 mg tablet Allergies Allergy/AdvReac Type Severity Reaction Status Date / Time No Known Drug Allergies Allergy Verified 10/24/21 12:34 Review of Systems <Celia Liu PA-C - Last Filed: 10/24/21 17:36> Review of Systems ROS Unobtainable: All systems reviewed & are unremarkable except as noted in HPI and below Constitutional Constitutional: Denies chills, Denies fatigue, Denies fever(s), Denies frequent falls, Denies lethargy and Denies weakness Eyes Eyes: Denies change in vision, Denies eye discharge, Denies irritation and Denies loss of vision ENT Ears, Nose, Mouth, and Throat: Denies change in voice, Denies dizziness, Denies neck pain, Denies sore throat and Denies throat swelling Cardiovascular Cardiovascular: Denies chest pain, Denies irregular heart rhythm, Denies lightheadedness, Denies palpitations, Denies dyspnea, Denies dyspnea on exertion and Denies orthopnea Respiratory Respiratory: Denies cough, Denies dyspnea, Denies dyspnea on exertion and Denies wheezing Gastrointestinal Gastrointestinal: Denies abdominal pain, Denies change in bowel habits, Denies diarrhea, Denies nausea and Denies vomiting Genitourinary Genitourinary: Denies hematuria, Denies flank pain, Denies urinary incontinence and Denies urinary urgency Musculoskeletal Musculoskeletal: Denies back pain, Denies muscle weakness, Denies neck pain, Denies numbness and Denies tingling Comments: Left ankle swelling, pain Integumentary/Breasts Skin/Breast: Denies pruritus, Denies erythema, Denies rash and Denies wounds Neurologic Neurologic: Denies behavioral changes, Denies confusion, Denies dizziness, Denies frequent falls, Denies loss of vision, Denies numbness, Denies tingling and Denies weakness Psychiatric Psychiatric: Denies anxiety, Denies behavioral changes, Denies confusion, Denies depression, Denies homicidal ideation and Denies suicidal ideation Endocrine Endocrine: Denies fatigue, Denies flushing and Denies palpitations Hematologic/Lymphatic Hematologic/Lymphatic: Denies easy bruising Allergic/Immunologic Allergic/Immunologic: Denies urticaria, Denies throat swelling and Denies wheezing Patient History <Celia Liu PA-C - Last Filed: 10/24/21 17:36> Medical History Hypercholesteremia Hypertension Social History household members: spouse Smoking Status: Former smoker alcohol intake: current Smoking Status: Former smoker alcohol intake frequency: 0-2 drinks per day Alcohol type: wine Substance Use Type: does not use Exam <Celia Liu PA-C - Last Filed: 10/24/21 17:36> Initial Vital Signs Initial Vital Signs: Vital Signs Temperature 97.1 F L 10/24/21 12:28 Pulse Rate 62 10/24/21 12:28 Respiratory Rate 18 10/24/21 12:28 Blood Pressure 182/94 H 10/24/21 12:28 Pulse Oximetry 98 10/24/21 12:28 Const General: cooperative, healthy appearing and comfortable [facility] Head: normal to inspection Eyes General: appearance normal, both eyes and all related structures Neck Neck: normal visual inspection Resp Effort & Inspection: normal respiratory effort Auscultation: clear to auscultation bilaterally Cardio Rate: regular rate Rhythm: regular rhythm Skin General: no rashes or lesions noted Neuro General: patient alert, patient awake and patient oriented x3 Extrem Other: Swelling noted to left medial ankle, mild tenderness to palpation. No erythema, discharge. Skin intact. Full range of motion. Gait normal. Strength and sensation intact. Neurovascularly intact. Compartments soft. Psych Appearance: grossly normal Mental Status: mental status grossly normal <DO Evelin Soto Last Filed: 10/28/21 19:12> Initial Vital Signs Initial Vital Signs: Vital Signs Temperature 97.1 F L 10/24/21 12:28 Pulse Rate 62 10/24/21 12:28 Respiratory Rate 18 10/24/21 12:28 Blood Pressure 182/94 H 10/24/21 12:28 Pulse Oximetry 98 10/24/21 12:28 Course <Celia Liu PA-C - Last Filed: 10/24/21 17:36> Orders Ordered: ED Orders 10/24/21 12:34 perip venous low extrem lt Stat 10/24/21 15:50 XR ankle LT min 3V Stat Vital Signs Vital signs: Vital Signs - 8 hr 10/24/21 12:28 10/24/21 17:03 Temperature 97.1 F L Pulse Rate 62 54 L Respiratory Rate 18 18 Blood Pressure 182/94 H 193/89 H Pulse Oximetry 98 99 <DO Evelin Soto Last Filed: 10/28/21 19:12> Orders Ordered: ED Orders 10/24/21 12:34 perip venous low extrem lt Stat 10/24/21 15:50 XR ankle LT min 3V Stat Vital Signs Vital signs: Vital Signs - 8 hr 10/24/21 12:28 10/24/21 17:03 Temperature 97.1 F L Pulse Rate 62 54 L Respiratory Rate 18 18 Blood Pressure 182/94 H 193/89 H Pulse Oximetry 98 99 MDM - Extremity (Nontraumatic) <Celia Liu PA-C - Last Filed: 10/24/21 17:36> Imaging Data Extremity x-ray #1: Radiologist's Impression: PROCEDURE:? XR ANKLE LT MIN 3V ? INDICATIONS:? Medial ankle swelling/pain ? TECHNIQUE:? 3 views of the ankle were acquired.? ? COMPARISON:? None. ? FINDINGS:? ? Bones:? No fractures or dislocations.? Ankle mortise is normally aligned.? No suspicious bony lesions.? ? Soft tissues:? No tibiotalar joint effusion.? Achilles tendon appears normal.? Swelling at the medial malleolus.? ? ? IMPRESSION:? No acute osseous abnormality. Swelling at the medial malleolus. ? Consider follow-up radiographs in 10-14 days. ? Dictated by: Brent Aguilera M.D. on 10/24/2021 at 16:42 ? ? Approved by: Brent Aguilera M.D. on 10/24/2021 at 16:43 ? US - DVT: Radiologist's Impression: PROCEDURE:? US PERIPH VENOUS LOW EXTREM LT ? INDICATIONS:? LOWER EXTREMITY SWELLING, JUST OFF ELIQUIST ? TECHNIQUE:? Real-time imaging, as well as color and pulse Doppler interrogation, were performed of the lower extremity deep veins from the inguinal ligament to the popliteal fossa.? ? COMPARISON:? None. ? FINDINGS:? The common femoral, femoral and popliteal veins are normally compressible, and free of intraluminal thrombus.? Color and pulse Doppler demonstrate normal phasic intraluminal flow.? There is normal augmentation response to distal compression maneuver. ? ? 1.8 x 0.5 x 1.3 cm fluid collection in soft tissue along medial aspect of left ankle and show no internal vascularity. ? IMPRESSION:? 1. No evidence of DVT in visualized left lower extremity veins. 2. Finding may represent a small hematoma in medial ankle soft tissue. ? ? Dictated by: Aris Nash M.D. on 10/24/2021 at 13:58 ? ? Approved by: Aris Nash M.D. on 10/24/2021 at 13:59 ? [facility] Narrative Medical decision making narrative: 66-year-old male with no reported past medical history presents to the ED with 5 days of medial left ankle swelling. Concern for DVT versus fracture/dislocation versus sprain/strain. Ultrasound negative for DVTs. X-rays negative for fractures/dislocations. Patient's symptoms likely due to a sprain/strain. ED return precautions discussed with patient. Patient verbalized understanding. Discharge patient. Discharge Plan Departure Patient Disposition: Home Clinical Impression: Acute ankle pain Instructions: DI for Ankle Pain Activity Restrictions/Additional Instructions: You were evaluated in the ED today for left ankle pain. Ultrasound did not show any clots. X-ray did not show any fractures or dislocation. Your symptoms are likely due to a sprain/strain. You may take Tylenol, ibuprofen for symptoms. Return to the ED if your symptoms worsen, you notice redness, increased swelling, pain, fever, chills, nausea, vomiting. Prescriptions: No Action losartan 50 mg tablet 50 mg PO BID 0RF Label Comments: TK 1 T PO BID rabeprazole 20 mg Tablet,Delayed Release (Dr/Ec) 20 mg PO DAILY 0RF flecainide 100 mg Tablet 100 mg PO BID 0RF aspirin 81 mg Tablet,Chewable 81 mg PO DAILY 0RF rosuvastatin 10 mg Tablet 10 mg PO DAILY 0RF EPA-DHA 720 290-430-1.4 mg-mg-gram Capsule 2 cap PO BID 0RF carvedilol [Coreg] 12.5 mg tablet 25 mg PO BID 0RF cyclobenzaprine 10 mg tablet 10 mg PO TID PRN (Reason: muscle spasm) Qty: 21 0RF oxycodone-acetaminophen 5-325 mg tablet 1 tab PO Q4-6H PRN (Reason: pain) Qty: 14 0RF Referrals: Ted Mendoza MD [Primary Care Provider] - <Amna Caldwell DO - Last Filed: 10/28/21 19:12> Cosign ED Attending Jayeature Attestation: I was immediately available in the department for consultation. Documentation has been reviewed.
[2021-10-24 17:03] VITALS: BP 193/89; PULSE 54; RESP 18; O2SAT 99
== END 2021-10-24 17:03 | disposition home or self-care (01) ==
PROVIDERS: Emergency Provider Student in an Organized Health Care Education/Training Program; PCP Internal Medicine
DX: M25.572 Pain in left ankle and joints of left foot (principal); Z87.891 Personal history of nicotine dependence
CPT/HCPCS: 73610; 93971; 99284

== ENCOUNTER → 2023-02-26 14:23 | Outpatient (CLI) | payer MEDICARE, OTHER, SELFPAY ==
[2023-02-26 15:20] LABS: Hematocrit 41.8 % (41-53); Hemoglobin 14.5 g/dL (13.5-17.5); Mean Corpuscular HGB Conc 34.7 % (30-36); Mean Corpuscular Hemoglobin 29.5 PG (26-34); Mean Corpuscular Volume 84.9 fL (80-100); Platelet Count 212 X10^3/uL (150-400); Red Blood Cell Count 4.92 X10^6/uL (4.5-5.9); White Blood Cell Count 8.5 X10^3/uL (4.5-11.0)
[2023-02-26 15:42] LABS: Alanine Aminotransferase 34 IU/L (<50); Albumin 4.4 g/dL (3.5-5.0); Albumin Globulin Ratio 1.4 (1.0-2.8); Alkaline Phosphatase 54 U/L (38-126); Aspartate Aminotransferase 27 IU/L (17-59); BUN Creatinine Ratio 19.6 (6-22); Bilirubin Total 0.7 mg/dL (0.2-1.3); Blood Urea Nitrogen 18 mg/dL (9-20); Calcium 9.5 mg/dL (8.4-10.2); Carbon Dioxide 29 mmol/L (22-32); Chloride 102 mmol/L (98-107); Cholesterol 196 mg/dL (140-199); Estimated Glomerular Filt Rate > 60 mL/min (>60); Globulin 3.1 g/dL (1.7-4.1); Glucose 110 mg/dL (80-110); HDL Cholesterol 49 mg/dL (40-60); HEMOLYSIS < 15 (0-50); LDL Cholesterol Calculated 118 mg/dL (<100); Potassium 3.8 mmol/L (3.4-5.1); Sodium 139 mmol/L (137-145); Total Protein 7.5 g/dL (6.3-8.2); Triglycerides 144 mg/dL (35-150)
[2023-02-26 16:05] LABS: Prostate Specific Antigen 1.03 ng/mL (0.10-4.00)
[2023-02-26 16:13] LABS: TSH w/ Reflex to FT4 1.37 uIU/mL (0.47-4.68)
[2023-02-27 06:23] LABS: Labcorp Hemoglobin (Hb) A1c 5.5 % (4.8-5.6)
== END ==
PROVIDERS: PCP Internal Medicine; Referring Provider Internal Medicine; Visit Provider Internal Medicine
DX: E78.2 Mixed hyperlipidemia (principal); I10 Essential (primary) hypertension; I48.0 Paroxysmal atrial fibrillation; R73.01 Impaired fasting glucose; Z79.01 Long term (current) use of anticoagulants
CPT/HCPCS: 36415; 80053; 80061; 83036; 84153; 84443; 85027

== ENCOUNTER → 2024-03-25 10:47 | Outpatient (CLI) | payer MEDICARE, OTHER, SELFPAY ==
[2024-03-25 11:42] LABS: Hematocrit 43.1 % (41-53); Hemoglobin 15.1 g/dL (13.5-17.5); Mean Corpuscular Hemoglobin 29.9 PG (26-34); Mean Corpuscular Volume 85.5 fL (80-100); Platelet Count 215 X10^3/uL (150-400); Red Blood Cell Count 5.04 X10^6/uL (4.5-5.9); Red Cell Distribution Width 14.2 % (11.6-14.8); White Blood Cell Count 8.7 X10^3/uL (4.5-11.0)
[2024-03-25 12:10] LABS: Hemoglobin A1C% w Est Avg Glu 5.5 % (4.0-6.0)
[2024-03-25 12:20] LABS: Aspartate Aminotransferase 31 IU/L (17-59); BUN Creatinine Ratio 16.3 (6-22); Blood Urea Nitrogen 16 mg/dL (9-20); Calcium 9.6 mg/dL (8.4-10.2); Carbon Dioxide 26 mmol/L (22-32); Chloride 104 mmol/L (98-107); Cholesterol 182 mg/dL (140-199); Estimated Glomerular Filt Rate > 60 mL/min (>60); Glucose 114 mg/dL (80-110); HDL Cholesterol 44 mg/dL (40-60); HEMOLYSIS < 15 (0-50); LDL Cholesterol Calculated 91 mg/dL (<100); Potassium 4.4 mmol/L (3.4-5.1); Sodium 140 mmol/L (137-145); Triglycerides 236 mg/dL (35-150)
[2024-03-25 12:50] LABS: Prostate Specific Antigen 1.13 ng/mL (0.10-4.00)
== END ==
LOC: LAB 10:48
PROVIDERS: PCP Internal Medicine; Referring Provider Internal Medicine; Visit Provider Internal Medicine
DX: R73.01 Impaired fasting glucose (principal); E78.2 Mixed hyperlipidemia; N40.1 Benign prostatic hyperplasia with lower urinary tract symptoms; N13.8 Other obstructive and reflux uropathy; I48.0 Paroxysmal atrial fibrillation
CPT/HCPCS: 36415; 80048; 80061; 83036; 84153; 84450; 85027

== ENCOUNTER → 2024-04-18 11:23 | Outpatient (CLI) | payer MEDICARE, OTHER, SELFPAY ==
--- NOTE | 2024-04-18 11:26 | DI.US.S_ITS ---
PROCEDURE: US CAROTID DOPPLER BI INDICATIONS: rule out carotid stenosis, visual disturbance TECHNIQUE: Color and pulse Doppler interrogation was performed of both carotid systems, with image documentation and velocity measurements. COMPARISON: None. FINDINGS: Stenosis calculations are based on SRU (Society of Radiologists in Ultrasound) criteria. Right side: Brachial blood pressure: 120/75 mm Hg. Common carotid artery peak systolic velocity: 85 cm/sec. Internal carotid artery peak systolic velocity: 61 cm/sec. Internal carotid artery end diastolic velocity: 18 cm/sec. External carotid artery peak systolic velocity: 106 cm/sec. ICA/CCA peak systolic ratio: 0.7 . Oliva scale imaging description: Widely patent vessels Percent internal carotid artery stenosis: Non . Vertebral artery: Flow direction is antegrade. Left side: Brachial blood pressure: 121/76 mm Hg. Common carotid artery peak systolic velocity: 64 cm/sec. Internal carotid artery peak systolic velocity: 75 cm/sec. Internal carotid artery end diastolic velocity: 25 cm/sec. External carotid artery peak systolic velocity: 109 cm/sec. ICA/CCA peak systolic ratio: 1.2 . Oliva scale imaging description: Widely patent vessels Percent internal carotid artery stenosis: Non . Vertebral artery: Flow direction is antegrade. IMPRESSION: Unremarkable carotid ultrasound. No stenosis. Dictated by: Alcon Elder M.D. on 04/18/2024 at 15:10 Approved by: Alcon Elder M.D. on 04/18/2024 at 15:11
== END ==
LOC: US 11:25
PROVIDERS: PCP Internal Medicine; Referring Provider Internal Medicine; Visit Provider Internal Medicine
DX: I65.29 Occlusion and stenosis of unspecified carotid artery (principal)
CPT/HCPCS: 93880

== ENCOUNTER → 2025-03-26 11:57 | Outpatient (CLI) | payer MEDICARE, OTHER, SELFPAY ==
[2025-03-26 12:33] LABS: Hematocrit 43.7 % (41-53); Hemoglobin 15.3 g/dL (13.5-17.5); Mean Corpuscular HGB Conc 34.9 % (30-36); Mean Corpuscular Hemoglobin 29.5 PG (26-34); Mean Corpuscular Volume 84.6 fL (80-100); Platelet Count 173 X10^3/uL (150-400)
[2025-03-26 12:46] LABS: Hemoglobin A1C% w Est Avg Glu 5.7 % (4.0-6.0)
[2025-03-26 13:11] LABS: Alanine Aminotransferase 43 IU/L (<50); Albumin 4.6 g/dL (3.5-5.0); Albumin Globulin Ratio 1.8 (1.0-2.8); Alkaline Phosphatase 50 U/L (38-126); Blood Urea Nitrogen 19 mg/dL (9-20); Calcium 10.0 mg/dL (8.4-10.2); Carbon Dioxide 28 mmol/L (22-32); Chloride 103 mmol/L (98-107); Cholesterol 182 mg/dL (140-199); Estimated Glomerular Filt Rate > 60 mL/min (>60); Globulin 2.6 g/dL (1.7-4.1); Glucose 107 mg/dL (70-99); HDL Cholesterol 42 mg/dL (40-60); HEMOLYSIS < 15 (0-50); Potassium 4.0 mmol/L (3.4-5.1); Sodium 141 mmol/L (137-145); Total Protein 7.2 g/dL (6.3-8.2); Triglycerides 263 mg/dL (35-150)
[2025-03-26 13:42] LABS: Prostate Specific Antigen 0.988 ng/mL (0.10-4.00)
[2025-03-26 13:43] LABS: TSH w/ Reflex to FT4 2.17 uIU/mL (0.47-4.68)
[2025-03-26 14:00] LABS: Vitamin B12 Reflex MMA if <400 697 pg/mL (239-931)
[2025-03-31 16:09] LABS: Albumin 4.2 g/dL (2.9-4.4); Alpha-1-Globulin 0.2 g/dL (0.0-0.4); Alpha-2-Globulin 0.6 g/dL (0.4-1.0); Gamma Globulin 1.1 g/dL (0.4-1.8)
== END ==
PROVIDERS: PCP Internal Medicine; Referring Provider Internal Medicine; Visit Provider Internal Medicine
DX: R73.01 Impaired fasting glucose (principal); E78.2 Mixed hyperlipidemia; R77.9 Abnormality of plasma protein, unspecified; I48.0 Paroxysmal atrial fibrillation; E53.8 Deficiency of other specified B group vitamins
CPT/HCPCS: 36415; 80053; 80061; 82607; 83036; 84153; 84155; 84165; 84443; 85027

== ENCOUNTER → 2025-03-31 15:04 | Outpatient (CLI) | payer MEDICARE, OTHER, SELFPAY ==
--- NOTE | 2025-03-31 15:06 | DI.CT.S_ITS ---
PROCEDURE: CT CHEST WO CON INDICATIONS: lung nodule TECHNIQUE: Noncontrast 5 mm thick sections acquired from the pulmonary apices to the posterior costophrenic angles. 1 mm lung window, 5 mm thick coronal and sagittal and 7 mm axial MIP reformats were then acquired. For radiation dose reduction, the following was used: automated exposure control, adjustment of mA and/or kV according to patient size. COMPARISON: [facility], CT, CT ANGIO CHEST, 01/24/2024, 11:02. FINDINGS: Image quality: Diagnostic Lungs and pleura: No airspace consolidation or pleural effusion. Middle lobe and lingular mild scarring/atelectasis. Right fissural nodule in the upper lung is similar to prior, measuring 4 mm. Mediastinum, heart, and esophagus: Coronary calcifications. Normal heart size. No enlarged lymph nodes by size criteria. Unremarkable esophagus Chest wall and thyroid: Unremarkable Upper abdomen: No gross abnormality on these noncontrast images Bones: Degenerative findings. IMPRESSION: No suspicious pulmonary nodules. 4 mm right upper fissural nodule is probably a lymph node. If the patient is considered at elevated risk for pulmonary malignancy, consider yearly chest CT or enrollment in low-dose lung cancer screening. Coronary calcifications. Dictated by: Som Stone M.D. on 04/01/2025 at 13:18 Approved by: Som Stone M.D. on 04/01/2025 at 13:23
== END ==
PROVIDERS: PCP Internal Medicine; Referring Provider Internal Medicine; Visit Provider Internal Medicine
DX: R91.1 Solitary pulmonary nodule (principal); J98.11 Atelectasis; I25.10 Atherosclerotic heart disease of native coronary artery without angina pectoris
CPT/HCPCS: 71250